=== PATIENT | male | born 1950 | race Caucasian/White ===

== ENCOUNTER 2022-10-17 07:16 | Observation (INO) ==
--- NOTE | 2022-10-17 07:25 | Emergency Department Note ---
HPI General Chief complaint: Urogenital-Male Stated complaint: Peeing Blood Time Seen by Provider: 10/17/22 07:25 Source: patient Mode of arrival: ambulatory History of Present Illness HPI Narrative: Narrative: Patient is a 72-year-old male with a history significant for shortness of breath, hypercholesterolemia, atrial fibrillation, hypertension, and diabetes mellitus who presents to the emergency department due to hematuria. Patient had an orthopedic procedure recently. After the procedure the Lewis catheter he had was taken out, but he had urinary retention, so a Lewis catheter was reintroduced. Urology follow-up was planned. Patient had hematuria, so presented to the emergency department. This was clear by the time of his arrival to the emergency department, so he was discharged at that time. Patient returns with bright red blood in the Lewis catheter. He denies any other symptoms. Related Data Home Medications Medication Instructions Recorded Confirmed apixaban 5 mg tablet (Eliquis) 5 mg PO BID 02/21/22 10/02/22 ascorbic acid (vitamin C) 1,000 mg 1 g PO QDAY 02/21/22 10/02/22 tablet aspirin 81 mg tablet,delayed 81 mg PO QDAY 02/21/22 10/02/22 release benazepril 10 1 tab PO QAM 02/21/22 10/02/22 mg-hydrochlorothiazide 12.5 mg tablet cholecalciferol (vitamin D3) 125 125 mcg PO QDAY 02/21/22 10/02/22 mcg (5,000 unit) capsule docusate sodium 100 mg capsule 100 mg PO QPM 02/21/22 10/02/22 (Colace) fluticasone propionate 50 1 spray intranasal QPM 02/21/22 10/02/22 mcg/actuation nasal spray,suspension glucosamine 1,000 mg-D3 25 1 tab PO BID 02/21/22 10/02/22 mcg-hyaluronic acid 1.65 mg tablet insulin aspart U-100 100 unit/mL 2.1 unit subcut USEASDIRECTD 02/21/22 10/02/22 subcutaneous solution (Novolog U-100 Insulin aspart) magnesium 250 mg tablet 250 mg PO QDAY 02/21/22 10/02/22 multivitamin 1 tab PO QDAY 02/21/22 10/02/22 oxaprozin 600 mg tablet 1,200 mg PO QAM 02/21/22 10/02/22 psyllium husk 0.52 gram capsule 0.52 g PO BID 02/21/22 10/02/22 (Fiber (psyllium husk)) vitamin B complex 1 tab PO QDAY 02/21/22 10/02/22 atorvastatin 40 mg tablet (Lipitor) 40 mg PO QPM 10/02/22 10/02/22 calcium 500 mg tablet 500 mg PO BID 10/02/22 10/02/22 diltiazem HCl 120 mg 120 mg PO QAM 10/02/22 10/02/22 capsule,extended release 24 hr fexofenadine 180 mg tablet 180 mg PO QPM 10/02/22 10/02/22 levothyroxine 150 mcg tablet 150 mcg PO QDAY 10/02/22 10/02/22 melatonin 5 mg tablet 5 mg PO HS PRN Sleep 10/02/22 10/02/22 sotalol 120 mg tablet (Betapace) 120 mg PO BID 10/02/22 10/02/22 vitamin A-vitamin C-vit E-min 1 tab PO QDAY 10/02/22 10/02/22 tablet Previous Rx's Medication Instructions Recorded aspirin 81 mg tablet,delayed 81 mg PO BID #60 tabs 10/09/22 release (Ecotrin Low Strength) docusate sodium 100 mg capsule 100 mg PO BID #60 caps 10/09/22 hydrocodone 10 mg-acetaminophen 1 - 2 tab PO Q4H PRN pain #75 tabs 10/09/22 325 mg tablet Allergies Allergy/AdvReac Type Severity Reaction Status Date / Time No Known Drug Allergies Allergy Verified 10/14/22 08:34 Review of Systems ROS ROS Narrative: Narrative: Constitutional: Denies fever or weakness Eyes: Denies eye pain or vision change ENT ED: Denies throat pain, hearing loss or rhinorrhea Cardiovascular: Denies chest pain, dyspnea on exertion, orthopnea or edema Respiratory: Denies shortness of breath or cough Gastrointestinal: Denies abdominal pain, nausea, vomiting, diarrhea, constipation, hematochezia or melena Genitourinary: Denies dysuria, frequency, hematuria or incontinence Musculoskeletal: Denies back pain or myalgia Integumentary: Denies rash or lesions Neurological: Denies headache, weakness, numbness, confusion, abnormal gait or dizziness Psychiatric: Denies anxiety, suicidal thoughts or homicidal thoughts Endocrine: Denies fatigue or polyuria Hematological/Lymphatic: Denies easy bleeding or easy bruising PFSH Narrative Patient History Narrative: Narrative: Medical/Surgical/Family History All Active Problems (Updated 10/14/22 @ 09:45 by Sae Costa MD) Hematuria (Acute) Snoring (Chronic) Hypersomnia (Chronic) SOB (shortness of breath) (Chronic) Dyspnea on exertion (Chronic) Peripheral neuropathy (Chronic) Hypercholesterolemia (Chronic) History of tobacco use (Chronic) Joint pain (Chronic) Insulin pump status (Chronic) Hypogonadism (Chronic) Obesity (Chronic) Primary generalized (osteo)arthritis (Chronic) Vitamin D deficiency (Chronic) Knee joint pain (Chronic) Hypothyroidism (Chronic) Mixed hyperlipidemia (Chronic) Paresthesia (Chronic) Numbness (Chronic) History of carpal tunnel syndrome (Chronic) Tachycardia (Chronic) Other obesity due to excess calories (Chronic) Lightheadedness (Chronic) Ventricular premature beats (Chronic) Premature atrial contraction (Chronic) Paroxysmal atrial fibrillation (Chronic) Daytime somnolence (Chronic) Chest pain (Chronic) Atrial fibrillation (Chronic) Essential hypertension (Chronic) Diabetes mellitus (Chronic) Left ventricular systolic dysfunction (Chronic) Aortic valve sclerosis (Chronic) Medical History Aortic valve sclerosis Atrial fibrillation Chest pain Daytime somnolence Diabetes mellitus type 2 Dyspnea on exertion Essential hypertension History of carpal tunnel syndrome History of tobacco use Hypercholesterolemia Hypersomnia Hypogonadism Hypothyroidism Insulin pump status Joint pain Knee joint pain > 3 months, bilateral Left ventricular systolic dysfunction Lightheadedness one episode Mixed hyperlipidemia Numbness Obesity Other obesity due to excess calories Paresthesia Paroxysmal atrial fibrillation Peripheral neuropathy Premature atrial contraction Primary generalized (osteo)arthritis Snoring SOB (shortness of breath) Tachycardia Ventricular premature beats Vitamin D deficiency Surgical History History of bilateral carpal tunnel release 07/18/21 and 09/08/21 History of cataract surgery bilateral History of inguinal hernia repair x2 History of oral surgery History of right knee surgery (~2019) meniscus repair History of vasectomy Family History Mother Diabetes mellitus Social History Smoking Status: Former smoker Alcohol Intake Frequency: holiday/special occasion only Substance Use: does not use Exam Narrative Narrative: Narrative: General General appearance: Present alert and in no apparent distress; Absent anxious, appears intoxicated or sleepy Head Head: Present normocephalic; Absent atraumatic Eye Eye: Present PERRL, EOMI and visual herrera intact; Absent scleral icterus or nystagmus ENT ENT: Present mucous membranes moist; Absent nasal congestion Neck Neck: Present full ROM; Absent tenderness Chest Chest: Present normal inspection, symmetric chest wall rise and tenderness Respiratory Respiratory: Present normal lung sounds bilaterally; Absent respiratory distress or accessory muscle use Cardiovascular Cardiovascular: Present regular rate, normal rhythm and normal heart sounds Adbominal Abdominal: Present soft and normal bowel sounds; Absent distention or tenderness Rectal Rectal: Present deferred Extremities Extremities: Present normal inspection and full ROM; Absent tenderness Back Back: Present normal inspection and full ROM; Absent tenderness Neurological Neurological: Present alert, oriented X3, CN II-XII intact, normal gait and reflexes normal; Absent motor sensory deficit Psychiatric Psychiatric: Present normal affect and normal mood Skin Skin: Present warm (WNL), dry and normal color Course Vital Signs Vital signs: Vital Signs Temperature 97.0 F 10/17/22 07:19 Pulse Rate 72 10/17/22 07:19 Respiratory Rate 18 10/17/22 07:19 Blood Pressure 132/83 10/17/22 07:19 Pulse Oximetry (%) 94 10/17/22 07:19 Oxygen Delivery Method Room Air 10/17/22 07:19 Temperature 97.0 F 10/17/22 07:19 Pulse Rate 72 10/17/22 07:19 Respiratory Rate 18 10/17/22 07:19 Blood Pressure 132/83 10/17/22 07:19 Pulse Oximetry (%) 94 10/17/22 07:19 Oxygen Delivery Method Room Air 10/17/22 07:19 [facility] MDM Narrative Medical decision making narrative: Narrative: Discharge Plan Patient/Caregiver Discharge Instructions Follow up with: Taya Medel ARNP [Primary Care Provider] - Prescriptions: No Action aspirin 81 mg tablet,delayed release (DR/EC) 81 mg PO QDAY benazepril-hydrochlorothiazide 10-12.5 mg tablet 1 tab PO QAM docusate sodium [Colace] 100 mg capsule 100 mg PO QPM Eliquis 5 mg tablet 5 mg PO BID psyllium husk [Fiber (psyllium husk)] 0.52 gram capsule 0.52 g PO BID fluticasone propionate 50 mcg/actuation spray,suspension 1 spray intranasal QPM Rx Instructions: administer into each nostril euupiedeeas-U4-gikjgqefrv acid 1,000 mg- 25 mcg-1.65 mg tablet 1 tab PO BID magnesium 250 mg tablet 250 mg PO QDAY multivitamin Tablet 1 tab PO QDAY insulin aspart U-100 [Novolog U-100 Insulin aspart] 100 unit/mL solution 2.1 unit subcut USEASDIRECTD Rx Instructions: PT HAS AN INSULIN PUMP oxaprozin 600 mg tablet 1,200 mg PO QAM vitamin B complex Tablet 1 tab PO QDAY ascorbic acid (vitamin C) 1,000 mg tablet 1 g PO QDAY cholecalciferol (vitamin D3) 125 mcg (5,000 unit) capsule 125 mcg PO QDAY atorvastatin [Lipitor] 40 mg Tablet 40 mg PO QPM calcium 500 mg Tablet 500 mg PO BID fexofenadine [Radha] 180 mg Tablet 180 mg PO QPM sotalol [Betapace] 120 mg Tablet 120 mg PO BID levothyroxine 150 mcg Tablet 150 mcg PO QDAY diltiazem HCl 120 mg Capsule,Extended Release 24hr 120 mg PO QAM Ocuvite Tablet 1 tab PO QDAY melatonin 5 mg Tablet 5 mg PO HS PRN (Reason: Sleep) hydrocodone-acetaminophen 10-325 mg tablet 1 - 2 tab PO Q4H PRN (Reason: pain) Qty: 75 0RF aspirin [Ecotrin Low Strength] 81 mg tablet,delayed release (DR/EC) 81 mg PO BID Qty: 60 0RF docusate sodium 100 mg capsule 100 mg PO BID Qty: 60 0RF
[2022-10-17 08:14] LABS: POC Calcium, Ionized 1.17 (1.16-1.32); POC Creatinine 0.9 (0.6-1.2); POC Potassium 4.1 (3.3-5.1)
[2022-10-17 08:57] LABS: Basophils # (Auto) 0.02 K/mcL (0.00-0.30); Basophils % (Auto) 0.4 % (0.0-2.0); Eosinophils # (Auto) 0.31 K/mcL (0.00-0.70); Eosinophils % (Auto) 5.8 % (0.0-7.0); Hematocrit 36.6 % (40.1-51.0); Hemoglobin 12.2 g/dL (13.7-17.5); Lymphocytes # (Auto) 1.25 K/mcL (1.50-4.80); Lymphocytes % (Auto) 23.2 % (15.5-49.0); Mean Cell Volume 95.6 fL (80.0-100.0); Mean Corpuscular HGB Conc 33.3 g/dL (31.0-36.0); Mean Platelet Volume 10.9 fL (8.8-12.5); Monocytes # (Auto) 0.87 K/mcL (0.10-0.90); Monocytes % (Auto) 16.2 % (1.0-12.0); Platelet Count 251 K/mcL (140-440); RBC 3.83 M/mcL (4.63-6.08); Red Cell Distribution Width 14.4 % (11.5-14.5); WBC 5.4 K/mcL (4.5-11.0)
[2022-10-17] MEDS ORDERED: LIDOCAINE 2% URO-JET 10 ML JEL.PF.APP UR ONE ×3 (08:59→19:09)
[2022-10-17 10:43] LABS: Appearance,Urine CLOUDY (Clear); Bilirubin,Urine Negative (Negative); Color,Urine RED; Culture Indicated,Urine yes; Glucose,Urine (UA) Negative (Negative); Ketones,Urine Negative (Negative); Leukocyte Esterase,Urine Negative /uL (Negative); Nitrate,Urine Negative (Negative); Protein,Urine 100 mg/dL (Negative); Specific Gravity,Urine 1.009 (1.000-1.035); Urine RBC > 182 /hpf (0-1); Urine Squamous Epithelial Cell 0 /hpf (0-4); Urine WBC > 182 /hpf (0-4); Urobilinogen,Urine Negative
[2022-10-17] MEDS: LIDOCAINE 2% URO-JET 10 ML JEL.PF.APP UR ONE ×2 (10:55→11:22)
[2022-10-17] MEDS ORDERED: morphine 4 MG/ML VIAL IV ONE (12:54)
[2022-10-17] MEDS ORDERED: ONDANSETRON 4 MG/2 ML VIAL IV ONE (12:54)
[2022-10-17] MEDS ORDERED: TRANEXAMIC ACID 1,000 MG/10 ML VIAL IV ONE (13:24)
--- NOTE | 2022-10-17 14:35 | Internal Med History&Physical ---
HPI History of Present Illness Patient information: Note initiated : 10/17/22 at 2:17 pm Service Date, if different from initiated Date: [] Patient: Elijah Marvin a 72 y/o M admitted on for Peeing Blood. Chief Complaint: [] History of present illness: Mr. Marvin is a 72 year old M Presents the ED with hematuria. Patient had a Chavez catheter placed on 27 for a knee surgery which was removed but then replaced due to urinary retention and urology f/u was planned. Patient is on Eliquis. Patient has been intermittently bleeding but today became significant. Patient states that first on the Chavez when it hit his prostate He has some bleeding but it went away. He has had some intermittent bleeding but last night it started to get dark again and then when he woke up he said he had a bag full of blood. Patient denies chest pain shortness of breath lightheadedness. ER attempted to irrigate the bladder but it did not flush out. New Chavez catheter was placed and did flush appropriately no clots noted but pink blood noted. Chavez removed a larger catheter 20 Dominican was placed. Having difficulty with flushing. Dr. Gonzalez was contacted who placed 24 Dominican catheter and brought to [facility] to get out several clots. Hospitalist requested to be involved given his atrial fibrillation and Eliquis. He has also been on asa 81mg bid since surgery. Patient also complains of constipation. Review of Systems: Remaining 10 point review of system reviewed negative. denies headache/fever/chills/nausea/vomiting/chest or abdominal pain/cough/dyspnea/diarrhea. Pertinent positives as above. PHYSICAL EXAM General: Alert, Awake, No acute Distress, obese Eyes/N/T: EOMI, no scleral icterus, PERRL, Head/Neck: neck supple, full ROM, normocephalic atraumatic CV: RRR, No murmurs, normal s1/s2 Pulm: Clear b/l, no wheezing/rhonchi/rales, no respiratory distress Abd: soft, nontender, +BS x4 Ext: no clubbing/cyanosis/edema, nontender Neuro: Alert, no focal deficits, moves all extremities, CN 2-12 grossly intact, sensations intact b/l upper/lower : rafa blood in chavez bag Psychiatric: Skin: warm/dry, normal color PFSH PFSH All Active Problems (Updated 10/14/22 @ 09:45 by Sae Costa MD) Hematuria (Acute) Snoring (Chronic) Hypersomnia (Chronic) SOB (shortness of breath) (Chronic) Dyspnea on exertion (Chronic) Peripheral neuropathy (Chronic) Hypercholesterolemia (Chronic) History of tobacco use (Chronic) Joint pain (Chronic) Insulin pump status (Chronic) Hypogonadism (Chronic) Obesity (Chronic) Primary generalized (osteo)arthritis (Chronic) Vitamin D deficiency (Chronic) Knee joint pain (Chronic) Hypothyroidism (Chronic) Mixed hyperlipidemia (Chronic) Paresthesia (Chronic) Numbness (Chronic) History of carpal tunnel syndrome (Chronic) Tachycardia (Chronic) Other obesity due to excess calories (Chronic) Lightheadedness (Chronic) Ventricular premature beats (Chronic) Premature atrial contraction (Chronic) Paroxysmal atrial fibrillation (Chronic) Daytime somnolence (Chronic) Chest pain (Chronic) Atrial fibrillation (Chronic) Essential hypertension (Chronic) Diabetes mellitus (Chronic) Left ventricular systolic dysfunction (Chronic) Aortic valve sclerosis (Chronic) Medical History Aortic valve sclerosis Atrial fibrillation Chest pain Daytime somnolence Diabetes mellitus type 2 Dyspnea on exertion Essential hypertension History of carpal tunnel syndrome History of tobacco use Hypercholesterolemia Hypersomnia Hypogonadism Hypothyroidism Insulin pump status Joint pain Knee joint pain > 3 months, bilateral Left ventricular systolic dysfunction Lightheadedness one episode Mixed hyperlipidemia Numbness Obesity Other obesity due to excess calories Paresthesia Paroxysmal atrial fibrillation Peripheral neuropathy Premature atrial contraction Primary generalized (osteo)arthritis Snoring SOB (shortness of breath) Tachycardia Ventricular premature beats Vitamin D deficiency Surgical History History of bilateral carpal tunnel release 07/18/21 and 09/08/21 History of cataract surgery bilateral History of inguinal hernia repair x2 History of oral surgery History of right knee surgery (~2019) meniscus repair History of vasectomy Family History Mother Diabetes mellitus Social History marital status: occupational status: retired physical activity: walking frequency: 3-4 times per week smoking status: Former smoker quit date: 07/16/83 alcohol intake frequency: holiday/special occasion only substance use type: does not use MEDS/ALLERGIES Home Medications and Allergies Home Medications Medication Instructions Recorded Confirmed Type apixaban 5 mg tablet (Eliquis) 5 mg PO BID 02/21/22 10/02/22 History ascorbic acid (vitamin C) 1,000 mg 1 g PO QDAY 02/21/22 10/02/22 History tablet aspirin 81 mg tablet,delayed 81 mg PO QDAY 02/21/22 10/02/22 History release benazepril 10 1 tab PO QAM 02/21/22 10/02/22 History mg-hydrochlorothiazide 12.5 mg tablet cholecalciferol (vitamin D3) 125 125 mcg PO QDAY 02/21/22 10/02/22 History mcg (5,000 unit) capsule docusate sodium 100 mg capsule 100 mg PO QPM 02/21/22 10/02/22 History (Colace) fluticasone propionate 50 1 spray intranasal QPM 02/21/22 10/02/22 History mcg/actuation nasal spray,suspension glucosamine 1,000 mg-D3 25 1 tab PO BID 02/21/22 10/02/22 History mcg-hyaluronic acid 1.65 mg tablet insulin aspart U-100 100 unit/mL 2.1 unit subcut USEASDIRECTD 02/21/22 10/02/22 History subcutaneous solution (Novolog U-100 Insulin aspart) magnesium 250 mg tablet 250 mg PO QDAY 02/21/22 10/02/22 History multivitamin 1 tab PO QDAY 02/21/22 10/02/22 History oxaprozin 600 mg tablet 1,200 mg PO QAM 02/21/22 10/02/22 History psyllium husk 0.52 gram capsule 0.52 g PO BID 02/21/22 10/02/22 History (Fiber (psyllium husk)) vitamin B complex 1 tab PO QDAY 02/21/22 10/02/22 History atorvastatin 40 mg tablet (Lipitor) 40 mg PO QPM 10/02/22 10/02/22 History calcium 500 mg tablet 500 mg PO BID 10/02/22 10/02/22 History diltiazem HCl 120 mg 120 mg PO QAM 10/02/22 10/02/22 History capsule,extended release 24 hr fexofenadine 180 mg tablet 180 mg PO QPM 10/02/22 10/02/22 History levothyroxine 150 mcg tablet 150 mcg PO QDAY 10/02/22 10/02/22 History melatonin 5 mg tablet 5 mg PO HS PRN Sleep 10/02/22 10/02/22 History sotalol 120 mg tablet (Betapace) 120 mg PO BID 10/02/22 10/02/22 History vitamin A-vitamin C-vit E-min 1 tab PO QDAY 10/02/22 10/02/22 History tablet aspirin 81 mg tablet,delayed 81 mg PO BID #60 tabs 10/09/22 Rx release (Ecotrin Low Strength) docusate sodium 100 mg capsule 100 mg PO BID #60 caps 10/09/22 Rx hydrocodone 10 mg-acetaminophen 1 - 2 tab PO Q4H PRN pain #75 tabs 10/09/22 Rx 325 mg tablet Allergies Allergy/AdvReac Type Severity Reaction Status Date / Time No Known Drug Allergies Allergy Verified 10/14/22 08:34 EXAM Constitutional Vitals: Temp Pulse Resp BP Pulse Ox O2 Del Method 97.0 F 72 18 132/83 94 Room Air 10/17/22 07:19 10/17/22 07:19 10/17/22 07:19 10/17/22 07:19 10/17/22 07:19 10/17/22 07:19 DATA Data Completed and Pending Labs: Labs from last 24 hours 10/17/22 10/17/22 10/17/22 09:41 08:11 08:08 WBC 5.4 RBC 3.83 L Hgb 12.2 L Hct 36.6 L POC Hct 38.0 L MCV 95.6 MCH 31.9 MCHC 33.3 RDW 14.4 Plt Count 251 MPV 10.9 Immature Gran % (Auto) 0.4 Neut % (Auto) 54.0 Lymph % (Auto) 23.2 [place] % (Auto) 16.2 H Eos % (Auto) 5.8 Baso % (Auto) 0.4 Lymph # (Auto) 1.25 L [place] # (Auto) 0.87 Eos # (Auto) 0.31 Baso # (Auto) 0.02 Immature Gran # 0.02 Absolute Neutrophils 2.91 POC Sodium 136 POC Potassium 4.1 POC Chloride 101 POC Total CO2 26.0 POC BUN 21 H POC Creatinine 0.9 POC Glucose 114 H POC WB Ioniz Calcium 1.17 Urine Color Red Urine Appearance Cloudy A Urine pH 6.0 Ur Specific [place] 1.009 Urine Protein 100 A Urine Glucose (UA) Negative Urine Ketones Negative Urine Occult Blood 0.20 Urine Nitrate Negative Urine Bilirubin Negative Urine Urobilinogen Negative Ur Leukocyte Esterase Negative Urine RBC > 182 H Urine WBC > 182 H Ur Squamous Epith Cells 0 Urine Bacteria None Ur Culture Indicated? yes A/P Narrative A/P Narrative: A: *Gross hematuria: *Acute blood loss anemia: *Urinary Retention: chavez placed after ortho surgery (right TKA) *Recent Right TKA on : *Chronic atrial fibrillation: *HTN/HLD: *Hypothyroidism: Continue levothyroxine *DM2: *constipation P: -Dr. Gonzalez for cystoscopy -IVF -hold home eliquis/asa, restart only eliquis when appropirate -monitor H&H -basal and ssi -cont home ACEI/BB/Dilt, hold hctz for now -cont statin -home medication reconciliation -bowel regimen -pt/ot -CM for placement needs -ppx: SCD Time Spent With Patient Time: Total time spent is greater than 50% in coordination of care (as documented) at patient's floor/unit and/or counseling patient: Initial: Total time with patient: 75 - 90 minutes
[2022-10-17 16:25] LABS: POC Calcium, Ionized 1.16 (1.16-1.32); POC Creatinine 1.1 (0.6-1.2); POC Potassium 4.7 (3.3-5.1)
--- NOTE | 2022-10-17 16:34 | Urology Consult Note ---
HPI Date of Consult Consult Date: 10/17/22 Requesting physician: Sae Costa Primary Care Provider: Taya Medel Consult Narrative Patient Information: Note initiated : 10/17/22 at 4:23 pm Service Date, if different from initiated Date: [] Patient: Elijah is a 72-year-old male who presented to the emergency department this morning with gross hematuria and a Lewis catheter in place. He has a recent history of a right total knee arthroscopy on October 09, 2022. Posto peratively he developed urinary retention. A Lewis catheter was placed. He was seen in the emergency department on October 14, 2022 with hematuria. He was on anticoagulation with Eliquis due to atrial fibrillation. At the time he was seen in the ER his urine had cleared his hematuria was mildly decreased at that ER visit but he was stable. It was decided that the patient should continue his Eliquis. The patient really presented to the emergency department this morning with gross blood in the catheter that was not draining. The ER removed a 16 Samoan Lewis catheter and placed an 18 Samoan Lewis catheter, unable to irrigate clot through it. We then consulted urology. I asked them to place a 24 Samoan catheter if unable to 22 Samoan catheter and then performed an irrigation. As the patient is still anticoagulated I also asked him to give the patient TXA. Earlier this afternoon I was called again that the patient was having clot retention with a 22 Samoan catheter placed and then he had not yet received TXA. I went to the hospital for further evaluation. The patient's medical history is significant for diabetes, atrial fibrillation, anticoagulation, hypothyroidism, peripheral neuropathy, and recent right knee surgery. He has an insulin pump in place. Chief Complaint: [Gross hematuria] Chief complaint: Gross hematuria with clot retention. Reason for consult: Gross hematuria with clot retention cc:: CC: Review of Systems All systems: reviewed and no additional remarkable complaints except as stated Genitourinary Genitourinary: difficulty urinating and hematuria Musculoskeletal Musculoskeletal: Present joint swelling Endocrine Endocrine: Present as per HPI Hematologic/Lymphatic Hematologic/Lymphatic: Present as per HPI PFSH PFSH All Active Problems (Updated 10/17/22 @ 16:32 by Delmar Gonzalez MD) Anticoagulant long-term use (Acute) Clot retention of urine (Acute) Gross hematuria (Acute) Aortic valve sclerosis (Chronic) Left ventricular systolic dysfunction (Chronic) Diabetes mellitus (Chronic) Essential hypertension (Chronic) Atrial fibrillation (Chronic) Chest pain (Chronic) Daytime somnolence (Chronic) Paroxysmal atrial fibrillation (Chronic) Premature atrial contraction (Chronic) Ventricular premature beats (Chronic) Lightheadedness (Chronic) Other obesity due to excess calories (Chronic) Tachycardia (Chronic) History of carpal tunnel syndrome (Chronic) Numbness (Chronic) Paresthesia (Chronic) Mixed hyperlipidemia (Chronic) Hypothyroidism (Chronic) Knee joint pain (Chronic) Vitamin D deficiency (Chronic) Primary generalized (osteo)arthritis (Chronic) Obesity (Chronic) Hypogonadism (Chronic) Insulin pump status (Chronic) Joint pain (Chronic) History of tobacco use (Chronic) Hypercholesterolemia (Chronic) Peripheral neuropathy (Chronic) Dyspnea on exertion (Chronic) SOB (shortness of breath) (Chronic) Hypersomnia (Chronic) Snoring (Chronic) Hematuria (Acute) Medical History Aortic valve sclerosis Atrial fibrillation Chest pain Daytime somnolence Diabetes mellitus type 2 Dyspnea on exertion Essential hypertension History of carpal tunnel syndrome History of tobacco use Hypercholesterolemia Hypersomnia Hypogonadism Hypothyroidism Insulin pump status Joint pain Knee joint pain > 3 months, bilateral Left ventricular systolic dysfunction Lightheadedness one episode Mixed hyperlipidemia Numbness Obesity Other obesity due to excess calories Paresthesia Paroxysmal atrial fibrillation Peripheral neuropathy Premature atrial contraction Primary generalized (osteo)arthritis Snoring SOB (shortness of breath) Tachycardia Ventricular premature beats Vitamin D deficiency Surgical History History of bilateral carpal tunnel release 07/18/21 and 09/08/21 History of cataract surgery bilateral History of inguinal hernia repair x2 History of oral surgery History of right knee surgery (~2019) meniscus repair History of vasectomy Family History Mother Diabetes mellitus Social History marital status: occupational status: retired physical activity: walking frequency: 3-4 times per week smoking status: Former smoker quit date: 07/16/83 alcohol intake frequency: holiday/special occasion only substance use type: does not use MEDS/ALLERGIES Home Medications and Allergies Home Medications Medication Instructions Recorded Confirmed Type apixaban 5 mg tablet (Eliquis) 5 mg PO BID 02/21/22 10/17/22 History ascorbic acid (vitamin C) 1,000 mg 1 g PO QDAY 02/21/22 10/02/22 History tablet aspirin 81 mg tablet,delayed 81 mg PO QDAY 02/21/22 10/02/22 History release benazepril 10 1 tab PO QAM 02/21/22 10/17/22 History mg-hydrochlorothiazide 12.5 mg tablet cholecalciferol (vitamin D3) 125 125 mcg PO QDAY 02/21/22 10/02/22 History mcg (5,000 unit) capsule fluticasone propionate 50 1 spray intranasal QPM 02/21/22 10/17/22 History mcg/actuation nasal spray,suspension glucosamine 1,000 mg-D3 25 1 tab PO BID 02/21/22 10/02/22 History mcg-hyaluronic acid 1.65 mg tablet insulin aspart U-100 100 unit/mL 2.1 unit subcut USEASDIRECTD 02/21/22 10/17/22 History subcutaneous solution (Novolog U-100 Insulin aspart) magnesium 250 mg tablet 250 mg PO QDAY 02/21/22 10/02/22 History multivitamin 1 tab PO QDAY 02/21/22 10/02/22 History oxaprozin 600 mg tablet 1,200 mg PO QAM 02/21/22 10/17/22 History psyllium husk 0.52 gram capsule 0.52 g PO BID 02/21/22 10/02/22 History (Fiber (psyllium husk)) vitamin B complex 1 tab PO QDAY 02/21/22 10/02/22 History atorvastatin 40 mg tablet (Lipitor) 40 mg PO QPM 10/02/22 10/17/22 History calcium 500 mg tablet 500 mg PO BID 10/02/22 10/02/22 History fexofenadine 180 mg tablet 180 mg PO QPM 10/02/22 10/02/22 History melatonin 5 mg tablet 5 mg PO HS PRN Sleep 10/02/22 10/02/22 History sotalol 120 mg tablet (Betapace) 120 mg PO BID 10/02/22 10/17/22 History vitamin A-vitamin C-vit E-min 1 tab PO QDAY 10/02/22 10/02/22 History tablet aspirin 81 mg tablet,delayed 81 mg PO BID #60 tabs 10/09/22 Rx release (Ecotrin Low Strength) docusate sodium 100 mg capsule 100 mg PO BID #60 caps 10/09/22 Rx diltiazem HCl 180 mg 180 mg PO QDAY 10/17/22 10/17/22 History capsule,extended release 24 hr hydrocodone 10 mg-acetaminophen 1 - 2 tab PO Q4HP PRN pain 10/17/22 10/17/22 History 325 mg tablet levothyroxine 200 mcg tablet 200 mcg PO QDAY 10/17/22 10/17/22 History Allergies Allergy/AdvReac Type Severity Reaction Status Date / Time No Known Drug Allergies Allergy Verified 10/14/22 08:34 Physical Examination Vital Signs Vital signs: Temp Pulse Resp BP Pulse Ox O2 Del Method 97.0 F 100 H 18 124/69 95 Room Air 10/17/22 07:19 10/17/22 14:42 10/17/22 07:19 10/17/22 14:32 10/17/22 14:21 10/17/22 07:19 General physical appearance General physical exam: well developed, well nourished, no distress and moderate pain Eyes Eye exam: PERRL ENT ENT exam: normal nares, normal mucosa and decreased hearing Head Head exam IM: Present atraumatic, normal inspection and normocephalic Cardiovascular Cardiovascular exam IM: Present irregular rhythm Respiratory Respiratory exam: normal expansion, normal respiratory effort and clear to auscultation Abdomen Abdomen: Present soft and non tender Genitourinary Genitourinary (Male): Present normal penis with no external lesions and testicles present Musculoskeletal Musculoskeletal: Present other (Patient in a gurney. Cannot evaluate. Right knee is wrapped.) Psychiatric Psychiatric: Present oriented to time, oriented to person, oriented to place, speech is normal and memory intact Results Labs 10/17/22 08:08 Labs: Abnormal lab results 10/17/22 10/17/22 10/17/22 Range/Units 08:08 08:11 09:41 RBC 3.83 L (4.63-6.08) M/mcL Hgb 12.2 L (13.7-17.5) g/dL Hct 36.6 L (40.1-51.0) % POC Hct 38.0 L (41-55) Dickson % (Auto) 16.2 H (1.0-12.0) % Lymph # (Auto) 1.25 L (1.50-4.80) K/mcL POC BUN 21 H (6-20) POC Glucose 114 H (70-105) Urine Appearance Cloudy A (Clear) Urine Protein 100 A (Negative) mg/dL Urine RBC > 182 H (0-1) /hpf Urine WBC > 182 H (0-4) /hpf All other labs normal. A/P Assessment and plan (1) Gross hematuria: Status: Acute (2) Clot retention of urine: Status: Acute (3) Anticoagulant long-term use: Status: Acute Sepsis Sepsis Identified: No Narrative A/P Narrative: At the bedside I hand irrigated the patient's bladder by the 22 Samoan catheter with approximately 2 L of sterile saline. I was not getting enough clot and therefore switched the catheter to a 24 Samoan Lewis catheter after which I was able to evacuate quite a bit more clot the patient still appeared to be bleeding. Due to the fact that he is anticoagulated I felt that the safest thing to do would be to take him to the operating room for cystoscopy, evacuation of clot and fulguration of bleeding. I explained the procedure to the patient as well as potential risks and complications. He understands the procedure and the risks and agrees to proceed. I spoke with the hospitalist was agreed to admit the patient overnight for observation. He is doing all right overnight he should be able to go home tomorrow. Time Spent With Patient Time: Total time spent is greater than 50% in coordination of care (as documented) at patient's floor/unit and/or counseling patient:
[2022-10-17] MEDS ORDERED: POLYETHYLENE GLYCOL 3350 17 GM PACKET PO PRN (16:52)
[2022-10-17] MEDS ORDERED: METOPROLOL TARTRATE 5 MG/5 ML VIAL IV PRN (16:52)
[2022-10-17] MEDS ORDERED: DEXTROSE 31 GM ORAL.SUSP PO PRN (16:52)
[2022-10-17] MEDS ORDERED: MAGNESIUM SULFATE 2 GM/50 ML BAG IV PRN (16:52)
[2022-10-17] MEDS ORDERED: IPRATROPIUM/ALBUTEROL 3 ML AMPUL.NEB NEB PRN ×2 (16:52→19:16)
[2022-10-17] MEDS ORDERED: ONDANSETRON 4 MG/2 ML VIAL IV PRN ×2 (16:52→19:16)
[2022-10-17] MEDS ORDERED: SENNOSIDES 1 TABLET PO PRN (16:52)
[2022-10-17] MEDS ORDERED: LABETALOL 5 MG/ML ML IV PRN (16:52)
[2022-10-17] MEDS ORDERED: ACETAMINOPHEN 325 MG TABLET PO PRN (16:52)
[2022-10-17] MEDS ORDERED: POTASSIUM CHLORIDE 20 MEQ TABLET PO PRN ×2 (16:52)
[2022-10-17] MEDS ORDERED: 0.9 % SODIUM CHLORIDE 1,000 ML IV SCH (16:52)
[2022-10-17] MEDS ORDERED: POTASSIUM CHLORIDE 40 MEQ in DEXTROSE 5% IN WATER 500 ML IV PRN (16:52)
[2022-10-17] MEDS ORDERED: DEXTROSE 50% 50 ML VIAL IV PRN (16:52)
[2022-10-17] MEDS ORDERED: morphine 4 MG/ML VIAL IV PRN (17:04)
[2022-10-17] MEDS ORDERED: morphine 4 MG/ML VIAL ONE (17:15)
--- NOTE | 2022-10-17 17:16 | Discharge Summary ---
Discharge Provider Provider IMPORTANT FOLLOW-UP INFORMATION FOR PCP: Patient information: Note initiated : 10/17/22 at 5:13 pm Service Date, if different from initiated Date: [] Patient: Elijah Marvin 72 y/o M admitted on 10/17/22 for Peeing Blood. Chief Complaint: [] Date of admission: 10/17/22 16:30 Discharge date: 10/18/22 Primary care physician: Taya Medel Consults: 10/17/22 Consult to Physician [CONS] Stat Comment: Consulting Provider: Richie Amaya Reason For Exam: Physician to Consult 10/17/22 10:22 Consult to Physician [CONS] Stat Comment: Consulting Provider: Delmar Gonzalez Reason For Exam: Physician to Consult COURSE Hospital Course Hospital course: History of present illness: Mr. Marvin is a 72 year old M Presents the ED with hematuria. Patient had a Lewis catheter placed on 27 for a knee surgery which was removed but then replaced due to urinary retention and urology f/u was planned. Patient is on Eliquis. Patient has been intermittently bleeding but today became significant. Patient states that first on the Lewis when it hit his prostate He has some bleeding but it went away. He has had some intermittent bleeding but last night it started to get dark again and then when he woke up he said he had a bag full of blood. Patient denies chest pain shortness of breath lightheadedness. ER attempted to irrigate the bladder but it did not flush out. New Lewis catheter was placed and did flush appropriately no clots noted but pink blood noted. Lewis removed a larger catheter 20 Cymraes was placed. Having difficulty with flushing. Dr. Gonzalez was contacted who placed 24 Cymraes catheter and brought to [facility] stable to get out several clots. Hospitalist requested to be involved given his atrial fibrillation and Eliquis. He has also been on asa 81mg bid since surgery. Patient also complains of constipation. 4/5 Patient feeling better. Hemoglobin dropped as expected, currently 8.9 after IV fluids and bleeding. Patient has very mild hematuria in the Lewis bag and the tube looks more clear. Seen by urology and okay for discharge. I discussed with the patient either discharging or monitoring overnight. Patient like to go home and says he can monitor for any bleeding at home. Patient to follow-up with Dr. Gonzalez outpatient. A: *Gross hematuria: *Acute blood loss anemia: *Urinary Retention: *Recent Right TKA on : *Chronic atrial fibrillation: *HTN/HLD: *Hypothyroidism: Continue levothyroxine *DM2: *constipation P: -f/u with Dr. Gonzalez -kelsey roberts when ok with Urology -no aspirin Discharge diagnosis: Gross hematuria acute blood loss anemia urinary retention Secondary discharge diagnosis: Chronic atrial fibrillation hypertension hyperlipidemia hypothyroidism diabetes type 2 constipation Time Spent with Patient Time attestation: Total time spent providing and/or coordinating discharge services: Time spent: Greater than 30 minutes EXAM Constitutional Vitals: Temp Pulse Resp BP Pulse Ox O2 Del Method 97.1 F 97 H 18 123/88 92 Room Air 10/17/22 17:01 10/17/22 17:01 10/17/22 07:19 10/17/22 17:01 10/17/22 17:01 10/17/22 17:01 Discharge Data Data Completed and Pending Labs on day of discharge: Labs from last 24 hours 10/17/22 10/17/22 10/17/22 16:21 09:41 08:11 WBC RBC Hgb Hct POC Hct 34.0 L 38.0 L MCV MCH MCHC RDW Plt Count MPV Immature Gran % (Auto) Neut % (Auto) Lymph % (Auto) Perry % (Auto) Eos % (Auto) Baso % (Auto) Lymph # (Auto) Perry # (Auto) Eos # (Auto) Baso # (Auto) Immature Gran # Absolute Neutrophils POC Sodium 135 136 POC Potassium 4.7 4.1 POC Chloride 101 101 POC Total CO2 26.0 26.0 POC BUN 21 H 21 H POC Creatinine 1.1 0.9 POC Glucose 154 H 114 H POC WB Ioniz Calcium 1.16 1.17 Urine Color Red Urine Appearance Cloudy A Urine pH 6.0 Ur Specific [place] 1.009 Urine Protein 100 A Urine Glucose (UA) Negative Urine Ketones Negative Urine Occult Blood 0.20 Urine Nitrate Negative Urine Bilirubin Negative Urine Urobilinogen Negative Ur Leukocyte Esterase Negative Urine RBC > 182 H Urine WBC > 182 H Ur Squamous Epith Cells 0 Urine Bacteria None Ur Culture Indicated? yes 10/17/22 08:08 WBC 5.4 RBC 3.83 L Hgb 12.2 L Hct 36.6 L POC Hct MCV 95.6 MCH 31.9 MCHC 33.3 RDW 14.4 Plt Count 251 MPV 10.9 Immature Gran % (Auto) 0.4 Neut % (Auto) 54.0 Lymph % (Auto) 23.2 Perry % (Auto) 16.2 H Eos % (Auto) 5.8 Baso % (Auto) 0.4 Lymph # (Auto) 1.25 L Perry # (Auto) 0.87 Eos # (Auto) 0.31 Baso # (Auto) 0.02 Immature Gran # 0.02 Absolute Neutrophils 2.91 POC Sodium POC Potassium POC Chloride POC Total CO2 POC BUN POC Creatinine POC Glucose POC WB Ioniz Calcium Urine Color Urine Appearance Urine pH Ur Specific [place] Urine Protein Urine Glucose (UA) Urine Ketones Urine Occult Blood Urine Nitrate Urine Bilirubin Urine Urobilinogen Ur Leukocyte Esterase Urine RBC Urine WBC Ur Squamous Epith Cells Urine Bacteria Ur Culture Indicated? Discharge Plan Patient/Caregiver Discharge Instructions Activity: increase activity as tolerated Diet: Consistent Carbohydrate Instructions: Hydrocodone/Acetaminophen (By mouth), Tamsulosin (By mouth), Sulfamethoxazole (By mouth), Cystoscopy (GEN) Activity Restrictions/Additional Instructions: Light activity as tolerated only. Discharged with the Lewis catheter in place. Plug the smaller irrigation port with a catheter plug. Leave the larger drainage port to gravity drainage using a leg bag. Also provided with a night bag. Teach care and use. Follow up with your Urologist and Primary Care Physician as scheduled. Your prescriptions have electronically been sent to [facility] [place]. Take your medications as instructed by your physician. Increase activity as tolerated, continue with consistent carbohydrate diet. This discharge packet is provided to you to help keep you informed about your care. We want to ensure you get everything you need when you go home. You will also be receiving a call from us in a few days to follow up with you and see how you are doing since your discharge. This gives us a chance to listen to any concerns you maybe experiencing since you were discharged or any additional needs you may have, as well as providing us feedback on your care experience. We strive to always provide excellent care and thank you for your feedback and for choosing [facility]. Prescriptions: New sulfamethoxazole-trimethoprim [Bactrim DS] 800-160 mg tablet 1 tab PO BID Qty: 14 0RF tamsulosin 0.4 mg capsule 0.4 mg PO QHS Qty: 90 0RF hydrocodone-acetaminophen 5-325 mg tablet 1 tab PO Q6H PRN (Reason: pain) Qty: 8 0RF Continued benazepril-hydrochlorothiazide 10-12.5 mg tablet 1 tab PO QAM fluticasone propionate 50 mcg/actuation spray,suspension 1 spray intranasal QPM Rx Instructions: administer into each nostril [id number] acid 1,000 mg- 25 mcg-1.65 mg tablet 1 tab PO BID magnesium 250 mg tablet 250 mg PO QPM insulin aspart U-100 [Novolog U-100 Insulin aspart] 100 unit/mL solution 2.1 unit subcut USEASDIRECTD Rx Instructions: PT HAS AN INSULIN PUMP oxaprozin 600 mg tablet 1,200 mg PO QAM vitamin B complex Tablet 1 tab PO QDAY ascorbic acid (vitamin C) 1,000 mg tablet 500 mg PO QDAY diltiazem HCl 180 mg capsule,extended release 24hr 120 mg PO QDAY levothyroxine 200 mcg tablet 150 mcg PO QPM hydrocodone-acetaminophen 10-325 mg tablet 1 - 2 tab PO Q4HP PRN (Reason: pain) Centrum Silver Men 300-600-300 mcg Tablet 1 tab PO QDAY atorvastatin [Lipitor] 40 mg Tablet 40 mg PO QPM calcium 500 mg Tablet 500 mg PO BID fexofenadine 180 mg Tablet 180 mg PO QPM sotalol [Betapace] 120 mg Tablet 120 mg PO BID vitamin A-vitamin C-vit E-min Tablet 1 tab PO QDAY melatonin 5 mg Tablet 5 mg PO HS PRN (Reason: Sleep) aspirin [Ecotrin Low Strength] 81 mg tablet,delayed release (DR/EC) 81 mg PO BID Qty: 60 0RF docusate sodium 100 mg capsule 100 mg PO BID Qty: 60 0RF Discontinued aspirin 81 mg tablet,delayed release (DR/EC) 81 mg PO QDAY Eliquis 5 mg tablet 5 mg PO BID Follow Up Plan Follow up with: Taya Medel ARNP [Primary Care Provider] - 10/26/22 9:45 am Delmar Gonzalez MD [Physician] - 10/25/22 3:30 pm (Post-op Follow Up Appointment 10/25/2022 at 3:30 pm) Patient Disposition: Home, Self-Care Prognosis: Fair Overall status at discharge: patient is progressing back to baseline Discharge Orders: Discharge Order (Routine); Ordered 10/18/22 Ordered By: Delmra Gonzalez
[2022-10-17] MEDS: INSULIN LISPRO 1 UNIT/0.01 ML UNIT SQ SCH ×2 (17:24→21:37)
[2022-10-17] MEDS ORDERED: cefTRIAXone 1 GM VIAL IV ONE (17:41)
[2022-10-17] MEDS ORDERED: PROPOFOL 200 MG/20 ML VIAL IV ONE (18:20)
[2022-10-17] MEDS ORDERED: DEXAMETHASONE 10 MG/ML VIAL ONE (18:20)
[2022-10-17] MEDS ORDERED: LIDOCAINE HCL/PF 100 MG/5 ML SYRINGE IV ONE (18:20)
[2022-10-17] MEDS ORDERED: fentaNYL 100 MCG/2 ML VIAL IV ONE (18:20)
[2022-10-17] MEDS ORDERED: KETAMINE 50 MG/ML Syringe (ANEST) IV ONE (18:20)
[2022-10-17] MEDS ORDERED: ONDANSETRON 4 MG/2 ML VIAL ONE (18:20)
[2022-10-17] MEDS ORDERED: HYDROcodone/APAP 10/325MG TABLET PO PRN (18:28)
[2022-10-17] MEDS ORDERED: ACETAMINOPHEN 1,000 MG/100 ML BAG IV ONE (19:16)
[2022-10-17] MEDS ORDERED: diphenhydrAMINE 50 MG/ML VIAL IV PRN (19:16)
[2022-10-17] MEDS ORDERED: METHOCARBAMOL 1,000 MG/10 ML VIAL IV PRN (19:16)
[2022-10-17] MEDS ORDERED: LACTATED RINGERS 250 ML IV PRN (19:16)
[2022-10-17] MEDS ORDERED: PROMETHAZINE 25 MG/ML VIAL IV PRN (19:16)
[2022-10-17] MEDS ORDERED: fentaNYL 100 MCG/2 ML VIAL IV PRN (19:16)
[2022-10-17] MEDS ORDERED: MEPERIDINE 25 MG/ML VIAL IV PRN (19:16)
[2022-10-17] MEDS ORDERED: NALOXONE HCL 0.4 MG/ML VIAL IV PRN (19:16)
--- NOTE | 2022-10-17 19:23 | Operative Note ---
Brief Operative Note Date of procedure: 10/17/22 Pre-op diagnosis: Gross hematuria with urinary clot retention Post-op diagnosis: same Procedure: Cystoscopy, evacuation of clot and fulguration of bleeding Grafts/Implants: Yes (24 Uruguayan three-way Lewis catheter with 50 mL in balloon) Anesthesia: GLMA Findings: 800 cc of clot evacuated from the bladder. Prostatic bleeding identified and cauterized. Large obstructive prostate with obstructive median lobe, lateral lobes and prostatic length of approximately 5 cm. Complications: none Surgeon: Delmar Gonzalez Estimated blood loss (cc): 25 Specimens Removed/Pathology: none sent Condition: stable Disposition: PACU Operative Note Operative Note: After obtaining informed consent from the patient, he was brought to the operating room was placed upon on the operating table. General anesthesia was provided. He was repositioned in a dorsolithotomy position was prepped and draped in usual sterile fashion. Attention was directed to the urethral meatus where a 21 Uruguayan cystoscope was passed per urethra into the bladder. I could visualize nothing in the bladder due to the bladder being filled with clot. The cystoscope was removed and the urethra was calibrated using [place] sounds to 30 Uruguayan. The 28 Uruguayan continuous-flow resectoscope sheath with obturator was then easily passed per urethra into the bladder. The obturator was removed and nothing came out. Visualization was not possible due to the large amount of clot. Using a Bi syringe with the attachment to connected to the scope I spent approximately 45 minutes breaking up in evacuating clot. I eventually evacuated about 800 cc of clot. Once the clot was removed I was able to visualize the bladder. There was no evidence of tumor or stone within the bladder. I did not visualize the ureteral orifices due to the obstructing median lobe and lateral lobes. The bladder neck to verumontanum distance was 5 to 6 cm with severe coaptation of the lateral lobes and an obstructing median lobe. The median lobe was bleeding. It appears that the Lewis catheter balloon had been inflated within the prostatic fossa. Once hemostasis was obtained the bladder was again filled and the resectoscope was removed. The 24 Uruguayan three- way Lewis catheter was then easily passed per urethra into the bladder. The balloon was inflated with 50 mL of sterile water. The catheter was then hand irrigated and ran clear with no further clots. Continuous bladder irrigation was started. The urine ran clear to clear light pink on irrigation. The patient was then returned to the spine position. He was awake and returned to the recovery room in stable condition
[2022-10-17] MEDS ORDERED: LACTATED RINGERS 1,000 ML IV SCH (19:30)
[2022-10-17] MEDS ORDERED: METHOCARBAMOL 1,000 MG/10 ML VIAL ONE (20:02)
[2022-10-17] MEDS ORDERED: MELATONIN 3 MG TABLET PO PRN (20:24)
[2022-10-17 20:31] LABS: Basophils # (Auto) 0.04 K/mcL (0.00-0.30); Basophils % (Auto) 0.3 % (0.0-2.0); Eosinophils # (Auto) 0.02 K/mcL (0.00-0.70); Eosinophils % (Auto) 0.1 % (0.0-7.0); Hematocrit 32.3 % (40.1-51.0); Hemoglobin 10.4 g/dL (13.7-17.5); Lymphocytes # (Auto) 0.98 K/mcL (1.50-4.80); Lymphocytes % (Auto) 6.8 % (15.5-49.0); Mean Cell Volume 97.9 fL (80.0-100.0); Mean Corpuscular HGB Conc 32.2 g/dL (31.0-36.0); Mean Platelet Volume 11.5 fL (8.8-12.5); Monocytes # (Auto) 0.83 K/mcL (0.10-0.90); Monocytes % (Auto) 5.7 % (1.0-12.0); Neutrophils % (Auto) 86.2 % (38.0-78.0); Platelet Count 289 K/mcL (140-440); Red Cell Distribution Width 14.4 % (11.5-14.5); WBC 14.4 K/mcL (4.5-11.0)
[2022-10-17] MEDS ORDERED: ATORVASTATIN 40 MG TABLET PO SCH (21:00)
[2022-10-17] MEDS: SOTALOL 80 MG TABLET PO SCH (21:36)
[2022-10-17] MEDS: DOCUSATE SODIUM 100 MG CAPSULE PO SCH (21:36)
[2022-10-18 07:00] LABS: Basophils # (Auto) 0.01 K/mcL (0.00-0.30); Basophils % (Auto) 0.1 % (0.0-2.0); Eosinophils # (Auto) 0 K/mcL (0.00-0.70); Eosinophils % (Auto) 0 % (0.0-7.0); Hematocrit 28.3 % (40.1-51.0); Hemoglobin 8.9 g/dL (13.7-17.5); Lymphocytes # (Auto) 1.15 K/mcL (1.50-4.80); Lymphocytes % (Auto) 10.7 % (15.5-49.0); Mean Cell Volume 100.7 fL (80.0-100.0); Mean Corpuscular HGB Conc 31.4 g/dL (31.0-36.0); Mean Platelet Volume 11.2 fL (8.8-12.5); Monocytes # (Auto) 0.34 K/mcL (0.10-0.90); Monocytes % (Auto) 3.2 % (1.0-12.0); Neutrophils % (Auto) 85.4 % (38.0-78.0); Platelet Count 242 K/mcL (140-440); RBC 2.81 M/mcL (4.63-6.08); Red Cell Distribution Width 14.3 % (11.5-14.5); WBC 10.8 K/mcL (4.5-11.0)
[2022-10-18] MEDS ORDERED: LEVOTHYROXINE 100 MCG TABLET PO SCH (07:30)
--- NOTE | 2022-10-18 07:31 | Internal Med Progress Note ---
SUBJECTIVE Subjective Patient information: Note initiated : 10/18/22 at 7:28 am Service Date, if different from initiated Date: [] Patient: Elijah Marvin 72 y/o M admitted on 10/17/22 for Peeing Blood. Chief Complaint: [] Interval history: History of present illness: Mr. Marvin is a 72 year old M Presents the ED with hematuria. Patient had a Chavez catheter placed on 27 for a knee surgery which was removed but then replaced due to urinary retention and urology f/u was planned. Patient is on Eliquis. Patient has been intermittently bleeding but today became significant. Patient states that first on the Chavez when it hit his prostate He has some bleeding but it went away. He has had some intermittent bleeding but last night it started to get dark again and then when he woke up he said he had a bag full of blood. Patient denies chest pain shortness of breath lightheadedness. ER attempted to irrigate the bladder but it did not flush out. New Chavez catheter was placed and did flush appropriately no clots noted but pink blood noted. Chavez removed a larger catheter 20 [place] was placed. Having difficulty with flushing. Dr. Gonzalez was contacted who placed 24 [place] catheter and brought to [facility] to get out several clots. Hospitalist requested to be involved given his atrial fibrillation and Eliquis. He has also been on asa 81mg bid since surgery. Patient also complains of constipation. 4/5 Patient feeling better. Hemoglobin dropped as expected, currently 8.9 after IV fluids and bleeding. Patient has very mild hematuria in the Chavez bag and the tube looks more clear. Seen by urology and okay for discharge. I discussed with the patient either discharging or monitoring overnight. Patient like to go home and says he can monitor for any bleeding at home. Patient to follow-up with Dr. Gonzalez outpatient. Review of Systems: denies headache/fever/chills/nausea/vomiting/chest or abdominal pain/cough/d yspnea/diarrhea. Pertinent positives as above. PHYSICAL EXAM General: Alert, Awake, No acute Distress, obese Eyes/N/T: EOMI, no scleral icterus, Head/Neck: neck supple, full ROM, CV: RRR, No murmurs, Pulm: Clear b/l, no wheezing/rhonchi/rales, no respiratory distress Abd: soft, nontender, +BS x4 Ext: no clubbing/cyanosis/edema, nontender Neuro: Alert, no focal deficits, moves all extremities,, sensations intact b/l upper/lower :mild hematuria chavez bag Psychiatric: Skin: warm/dry, normal color Constitutional Vitals: Vital Signs Temp Pulse Resp BP Pulse Ox O2 Del Method O2 Flow Rate 97.7 F 84 19 109/76 96 Room Air 0 10/18/22 05:27 10/18/22 05:27 10/18/22 05:27 10/18/22 05:27 10/18/22 05:27 10/18/22 05:27 10/17/22 20:29 Period Temp Pulse Resp BP Sys/Saucedo Pulse Ox O2 Del Method O2 Flow Rate Last 24 Hr 96.8 F-97.7 F 73-100 11-39 78-127/62-90 92-100 CPAP-Room Air, CPAP 0-4 Intake and Output 10/17/22 10/18/22 10/18/22 19:59 03:59 11:59 Intake Total 63 57018 2950 Output Total 3024 Balance 63 2889 -75 Weight 108.817 kg Intake & Output: Intake & Output 10/17/22 10/18/22 10/18/22 19:59 03:59 11:59 Intake Total 63 30392 2950 Output Total 3025 Balance 63 2889 -75 Weight 108.817 kg Intake: IV 63 139 Sodium Chloride 0.9% 1,000 ml @ 63 0 100 mls/hr IV .Q10H REBECCA Rx#: [id number] Lactated Ringers 1,000 ml @ 20 39 mls/hr IV .Q24H REBECCA Rx#: [id number] Oral 720 300 IV - Manual Only 980 CBI Fluid 21265 2650 Output: Estimated Blood Loss 25 CBI Fluid 3025 Other: Urine Appearance Clear Clear Clear Uretheral (Chavez) Hematuria Hematuria Large Blood Clots Large Blood Clots Urine Color Pale Medium [place] Pale Light [place] Uretheral (Chavez) Dark Red Yellow Pale Light [place] Urine Odor Normal Stool Size Small Stool Color Brown Brown Stool Consistency Dry and Hard Formed # Bowel Movements 1 Net CBI 425 375 OBJ DATA Labs 10/18/22 05:32 10/18/22 05:31 Labs: Abnormal Lab Results 10/18/22 10/17/22 10/17/22 05:32 19:40 16:21 WBC 14.4 H RBC 2.81 L 3.30 L Hgb 8.9 L 10.4 L Hct 28.3 L 32.3 L POC Hct 34.0 L MCV 100.7 H Immature Gran % (Auto) 0.6 H 0.9 H Neut % (Auto) 85.4 H 86.2 H Lymph % (Auto) 10.7 L 6.8 L [place] % (Auto) Lymph # (Auto) 1.15 L 0.98 L Immature Gran # 0.07 H 0.13 H Absolute Neutrophils 9.21 H 12.44 H POC BUN 21 H POC Glucose 154 H Urine Appearance Urine Protein Urine RBC Urine WBC 10/17/22 10/17/22 10/17/22 09:41 08:11 08:08 WBC RBC 3.83 L Hgb 12.2 L Hct 36.6 L POC Hct 38.0 L MCV Immature Gran % (Auto) Neut % (Auto) Lymph % (Auto) [place] % (Auto) 16.2 H Lymph # (Auto) 1.25 L Immature Gran # Absolute Neutrophils POC BUN 21 H POC Glucose 114 H Urine Appearance Cloudy A Urine Protein 100 A Urine RBC > 182 H Urine WBC > 182 H Meds: Medications Acetaminophen (Acetaminophen 325 Mg Tablet) 650 mg PO Q6HP PRN PRN Reason: fever > 101 Hydrocodone Bitart/Acetaminophen (Hydrocodone/Apap 10/325mg Tablet) 1 tab PO Q4-6HP PRN; Protocol PRN Reason: Per Pain Protocol Albuterol/Ipratropium (Ipratropium/Albuterol 3 Ml Ampul.Neb) 3 ml NEB Q4HP PRN PRN Reason: Shortness Of Breath Atorvastatin Calcium (Atorvastatin 40 Mg Tablet) 40 mg PO QPM [facility] Last Admin: 10/17/22 21:36 Dose: 40 mg Dextrose (Dextrose 50% 50 Ml Vial) 0 ml IV UD PRN PRN Reason: Per Sliding Scale Diagnostic Test (Pha) (Accu-Chek 1 Each Strip) 1 each FS ACHS [facility] Last Admin: 10/17/22 20:02 Dose: 1 each Diltiazem HCl (Diltiazem 180 Mg Cap.Xl.24h) 180 mg PO QDAY [facility] Docusate Sodium (Docusate Sodium 100 Mg Capsule) 100 mg PO BID [facility] Last Admin: 10/17/22 21:36 Dose: 100 mg Glucose (Dextrose 31 Gm Oral.Susp) 15 gm PO PRN PRN PRN Reason: Hypoglycemia Potassium Chloride 40 meq/ (Dextrose) 520 mls @ 130 mls/hr IV UD PRN PRN Reason: Potassium Level < 3 Magnesium Sulfate (Magnesium Sulfate) 2 gm in 50 mls @ 25 mls/hr IV UD PRN PRN Reason: Magnesium Level </= 1.6 Labetalol HCl (Labetalol 5 Mg/Ml Ml) 0 mg IV Q2HP PRN PRN Reason: Hypertension Lactulose (Lactulose 20 Gm/30 Ml Oral.Radha) 20 gm PO DAILY [facility] Levothyroxine Sodium (Levothyroxine 100 Mcg Tablet) 200 mcg PO ACB [facility] Melatonin (Melatonin 3 Mg Tablet) 6 mg PO HSP PRN PRN Reason: Insomnia Metoprolol Tartrate (Metoprolol Tartrate 5 Mg/5 Ml Vial) 5 mg IV Q2HP PRN PRN Reason: Tachyarrhythmias HR>110 Morphine Sulfate (Morphine 4 Mg/Ml Vial) 0 mg IV Q3HP PRN; Protocol PRN Reason: Per Pain Protocol Last Admin: 10/17/22 17:19 Dose: 4 mg Ondansetron HCl (Ondansetron 4 Mg/2 Ml Vial) 4 mg IV Q4HP PRN PRN Reason: Nausea And Vomiting Polyethylene Glycol (Polyethylene Glycol 3350 17 Gm Packet) 17 gm PO DAILYP PRN PRN Reason: Constipation Potassium Chloride (Potassium Chloride 20 Meq Tablet) 40 meq PO UD PRN PRN Reason: Potassium Level of 3-3.5 Potassium Chloride (Potassium Chloride 20 Meq Tablet) 40 meq PO UD PRN PRN Reason: Potassium Level < 3 Senna (Sennosides 1 Tablet) 2 tab PO DAILYP PRN PRN Reason: Constipation Sotalol HCl (Sotalol 80 Mg Tablet) 120 mg PO BID [facility] Last Admin: 10/17/22 21:36 Dose: 120 mg A/P Narrative A/P Narrative: A: *Gross hematuria: s/p cystoscopy and clot evacuation, prostatic bleeding *Acute blood loss anemia: *Urinary Retention: chavez placed after ortho surgery (right TKA) *Recent Right TKA on : *Chronic atrial fibrillation: *HTN/HLD: *Hypothyroidism: Continue levothyroxine *DM2: *constipation P: -Dr. Gonzalez for urology -hold home eliquis/asa, restart only eliquis when appropirate after urology f/u -monitor H&H -basal and ssi -cont home ACEI/BB/Dilt, -cont statin -bowel regimen -pt/ot -CM for placement needs -ppx: SCD Time Spent With Patient Time: Total time spent is greater than 50% in coordination of care (as documented) at patient's floor/unit and/or counseling patient: Subsequent: Total time with patient: 35 - 49 minutes QUALITY VTE Deep Vein Thrombosis/Pulmonary Embolism Present on Admission: No
[2022-10-18 07:49] LABS: ALT/SGPT 18 U/L (<40); AST/SGOT 27 U/L (<40); Alkaline Phosphatase 50 U/L (39-117); Bilirubin,Direct < 0.2 mg/dL (0-0.3); Bilirubin,Total 0.4 mg/dL (0.1-1.0); Blood Urea Nitrogen 27 mg/dL (8-23); Calcium 8.7 mg/dL (8.6-10.4); Carbon Dioxide 21 mmol/L (22-30); Chloride 101 mmol/L (96-108); Globulin 2.9 gm/dL (2.2-3.7); Glomerular Filtration Rate 85; Glucose 117 mg/dL (70-105); Lactate Dehydrogenase 246 U/L (135-225); Phosphorous 4.9 mg/dL (2.5-4.5); Triglycerides 80 mg/dL (<150); Uric Acid 7.3 mg/dL (2.5-8.0)
--- NOTE | 2022-10-18 08:00 | Urology Progress Note ---
SUBJECTIVE Subjective Patient information: Note initiated : 10/18/22 at 7:54 am Service Date, if different from initiated Date: [] Patient: Elijah Marvin 72 y/o M admitted on 10/17/22 for Peeing Blood. Chief Complaint: [Gross hematuria with clot retention] Principal diagnosis: Gross hematuria with clot retention Interval history: Elijah is a 72-year-old male who is postoperative day #1 status post cystoscopy, evacuation of of clot and fulguration of bleeding. 800 cc of clot were evacuated from the bladder. A 24 [place] three-way Lewis catheter was placed and the patient was started on continuous bladder irrigation. This was stopped at 5 AM and the urine has remained clear rebecca color. Patient feels well this morning. Overnight his hemoglobin dropped from a value of 13.6 October 02 to 12.2 yesterday preoperatively to 8.9 postoperatively. He has no dizziness and feels well. Constitutional Vitals: Vital Signs Temp Pulse Resp BP Pulse Ox O2 Del Method O2 Flow Rate 97.7 F 84 19 109/76 96 Room Air 0 10/18/22 05:27 10/18/22 05:27 10/18/22 05:27 10/18/22 05:27 10/18/22 05:27 10/18/22 05:27 10/17/22 20:29 Period Temp Pulse Resp BP Sys/Saucedo Pulse Ox O2 Del Method O2 Flow Rate Last 24 Hr 96.8 F-97.7 F 73-100 11-39 78-127/62-90 92-100 CPAP-Room Air, CPAP 0-4 Intake and Output 10/17/22 10/18/22 10/18/22 19:59 03:59 11:59 Intake Total 63 14356 2950 Output Total 3024 Balance 63 2889 -75 Weight 108.817 kg Intake & Output: Intake & Output 10/17/22 10/18/22 10/18/22 19:59 03:59 11:59 Intake Total 63 44546 2950 Output Total 3024 Balance 63 2889 -75 Weight 108.817 kg Intake: IV 63 139 Sodium Chloride 0.9% 1,000 ml @ 63 0 100 mls/hr IV .Q10H REBECCA Rx#: [id number] Lactated Ringers 1,000 ml @ 20 39 mls/hr IV .Q24H REBECCA Rx#: [id number] Oral 720 300 IV - Manual Only 980 CBI Fluid 2650 Output: Estimated Blood Loss 25 CBI Fluid 3025 Other: Urine Appearance Clear Clear Clear Uretheral (Lewis) Hematuria Hematuria Large Blood Clots Large Blood Clots Urine Color Pale Medium [place] Pale Light [place] Uretheral (Lewis) Dark Red Yellow Pale Light [place] Urine Odor Normal Stool Size Small Stool Color Brown Brown Stool Consistency Dry and Hard Formed # Bowel Movements 1 Net CBI 425 375 General appearance: average body habitus and no acute distress Head Head exam: Present atraumatic, normal inspection and normocephalic Respiratory Respiratory exam: Present normal respiratory exam and CTAB Cardiovascular Cardiovascular exam: Present normal rate and rhythm Expanded Exam Urine Appearance: Clear Urine Color: Dark Yellow and Light Rebecca Psychiatric Psychiatric exam: Present normal affect A/P Assessment and plan (1) Anticoagulant long-term use: Status: Acute (2) Clot retention of urine: Status: Acute (3) Gross hematuria: Status: Acute (4) Diabetes mellitus: Status: Chronic Comment: type 2 (5) Atrial fibrillation: Status: Chronic Qualifiers: Atrial fibrillation type: paroxysmal Qualified Code(s): I48.0 - Paroxysmal atrial fibrillation (6) BPH loc w urin obs/LUTS: Status: Acute Narrative A/P Narrative: Elijah is a 72-year-old male with a recent history of a right knee surgery performed on October 09. Postoperatively he developed urinary retention and a Lewis catheter was placed. He likely had some prostatic trauma with Lewis catheter placement. He was seen in our emergency department on October 14, 2022 with hematuria. Hematuria resolved and he was left on his anticoagulant. He returned to the ER on October 17 with severe gross hematuria and clot retention. Attempts to irrigate the bladder at the bedside were unsuccessful. The ER initially placed an 18 [place] catheter to irrigate efflux. We then placed a 22 [place] before I changed it to a 24. I took the patient to the operating room and evacuated 800 cc of clot and fulgurated bleeding within the prostatic fossa. Continuous bladder irrigation was run overnight. Was stopped at 5 AM and by 7 AM the urine remained clear without irrigation. We discussed sending him home today with a catheter in place. The smaller irrigation port will be plugged in the large-bore be to gravity drainage he will go home with a leg bag and night bag. We will go home with an antibiotic. I will start him on tamsulosin. We discussed this medication, its use and possible side effects. We discussed holding his anticoagulation until he sees me back in the office. We discussed that on cystoscopy in the OR he was seen to have an extremely large obstructive prostate and he will likely need to undergo transurethral resection of the prostate. I will follow-up with him in the office next week for further evaluation and treatment. Time Spent With Patient Time: Total time spent is greater than 50% in coordination of care (as documented) at patient's floor/unit and/or counseling patient: Subsequent: Total time with patient: Less than 25 minutes Critical Care Time: No
--- NOTE | 2022-10-18 08:01 | Discharge Plan ---
Discharge Plan Patient/Caregiver Discharge Instructions Activity: increase activity as tolerated Diet: Consistent Carbohydrate Activity Restrictions/Additional Instructions: Light activity as tolerated only. Discharged with the Lewis catheter in place. Plug the smaller irrigation port with a catheter plug. Leave the larger drainage port to gravity drainage using a leg bag. Also provided with a night bag. Teach care and use. Prescriptions: New sulfamethoxazole-trimethoprim [Bactrim DS] 800-160 mg tablet 1 tab PO BID Qty: 14 0RF tamsulosin 0.4 mg capsule 0.4 mg PO QHS Qty: 90 0RF hydrocodone-acetaminophen 5-325 mg tablet 1 tab PO Q6H PRN (Reason: pain) Qty: 8 0RF Continued benazepril-hydrochlorothiazide 10-12.5 mg tablet 1 tab PO QAM fluticasone propionate 50 mcg/actuation spray,suspension 1 spray intranasal QPM Rx Instructions: administer into each nostril [id number] acid 1,000 mg- 25 mcg-1.65 mg tablet 1 tab PO BID magnesium 250 mg tablet 250 mg PO QPM insulin aspart U-100 [Novolog U-100 Insulin aspart] 100 unit/mL solution 2.1 unit subcut USEASDIRECTD Rx Instructions: PT HAS AN INSULIN PUMP oxaprozin 600 mg tablet 1,200 mg PO QAM vitamin B complex Tablet 1 tab PO QDAY ascorbic acid (vitamin C) 1,000 mg tablet 500 mg PO QDAY diltiazem HCl 180 mg capsule,extended release 24hr 120 mg PO QDAY levothyroxine 200 mcg tablet 150 mcg PO QPM hydrocodone-acetaminophen 10-325 mg tablet 1 - 2 tab PO Q4HP PRN (Reason: pain) Centrum Silver Men 300-600-300 mcg Tablet 1 tab PO QDAY atorvastatin [Lipitor] 40 mg Tablet 40 mg PO QPM calcium 500 mg Tablet 500 mg PO BID fexofenadine 180 mg Tablet 180 mg PO QPM sotalol [Betapace] 120 mg Tablet 120 mg PO BID vitamin A-vitamin C-vit E-min Tablet 1 tab PO QDAY melatonin 5 mg Tablet 5 mg PO HS PRN (Reason: Sleep) aspirin [Ecotrin Low Strength] 81 mg tablet,delayed release (DR/EC) 81 mg PO BID Qty: 60 0RF docusate sodium 100 mg capsule 100 mg PO BID Qty: 60 0RF Discontinued aspirin 81 mg tablet,delayed release (DR/EC) 81 mg PO QDAY Eliquis 5 mg tablet 5 mg PO BID Follow Up Plan Follow up with: Taya Medel ARNP [Primary Care Provider] - Delmar Gonzalez MD [Physician] - 10/25/22 3:30 pm (Post-op Follow Up Appointment 10/25/2022 at 3:30 pm) Patient Disposition: Home, Self-Care Prognosis: Fair Overall status at discharge: patient is progressing back to baseline Discharge Orders: Discharge Order (Routine); Ordered 10/18/22 Ordered By: Delmar Gonzalez
[2022-10-18] MEDS: DOCUSATE SODIUM 100 MG CAPSULE PO SCH (08:02)
[2022-10-18] MEDS: SOTALOL 80 MG TABLET PO SCH (08:02)
[2022-10-18] MEDS ORDERED: LACTULOSE 20 GM/30 ML ORAL.SOL PO SCH (09:00)
[2022-10-18] MEDS ORDERED: DILTIAZEM 180 MG CAP.XL.24H PO SCH (09:00)
== END 2022-10-18 10:25 | disposition home or self-care (01) ==
LOC: ED 07:16 → ICU 07:16
PROVIDERS: ADMIT Internal Medicine; ATTEND Internal Medicine